=== PATIENT | male | born 1940 | race Caucasian/White ===

== ENCOUNTER 2018-08-16 20:44 | Inpatient (IN) | payer OTHER ==
[2018-08-16 21:32] LABS: ADD MAN DIFF? NO
[2018-08-16 21:36] LABS: BASOPHIL # 0.1 10^3/ul (0.0-0.1); BASOPHILS % 0.7 % (0.0-2.0); EOSINOPHILS # 0.2 10^3/ul (0.0-0.5); EOSINOPHILS % 2.2 % (0.0-7.0); HEMATOCRIT 45.2 % (42.0-52.0); HEMOGLOBIN 15.2 g/dl (14.0-18.0); LYMPHOCYTES % 25.9 % (15.0-51.0); MEAN CORPUSCULAR HEMOGLOBIN 30.6 pg (29.0-33.0); MEAN CORPUSCULAR HGB CONC 33.6 g/dl (32.0-37.0); MEAN CORPUSCULAR VOLUME 90.9 fl (82.0-101.0); MEAN PLATELET VOLUME 9.7 fl (7.4-10.4); MONOCYTE # 0.7 10^3/ul (0.3-0.9); MONOCYTES % 9.1 % (0.0-11.0); NEUTROPHIL # 4.7 10^3/ul (1.6-7.5); NEUTROPHILS % 61.6 % (39.0-77.0); PLATELET COUNT 227 10^3/UL (140-415); RED BLOOD COUNT 4.97 10^6/ul (4.70-6.10); RED CELL DISTRIBUTION WIDTH 13.3 % (11.5-14.5)
[2018-08-16 21:36] LABS: WHITE BLOOD COUNT 7.6 10^3/ul (4.8-10.8)
[2018-08-16] MEDS: SOD CHLORIDE 0.9% 1,000 ML IV (21:40)
[2018-08-16 21:52] LABS: ALANINE AMINOTRANSFERASE 14 IU/L (13-69); ALBUMIN 4.2 g/dl (3.3-4.9); ALBUMIN/GLOBULIN RATIO 1.23; ALKALINE PHOSPHATASE 80 IU/L (42-121); ANION GAP 12 (5-13); ASPARTATE AMINO TRANSFERASE 23 IU/L (15-46); BILIRUBIN,INDIRECT 0.2 mg/dl (0-1.1); BILIRUBIN,TOTAL 0.2 mg/dl (0.2-1.3); BLOOD UREA NITROGEN 23 mg/dl (7-20); CALCIUM 9.6 mg/dl (8.4-10.2); CARBON DIOXIDE 28 mmol/L (21-31); CHLORIDE 98 mmol/L (97-110); CREATININE 1.14 mg/dl (0.61-1.24); GLUCOSE 182 mg/dl (70-220); LIPASE 98 U/L (23-300); POTASSIUM 3.6 mmol/L (3.5-5.1); SODIUM 138 mmol/L (135-144); TOTAL PROTEIN 7.6 g/dl (6.1-8.1)
[2018-08-16 21:53] LABS: ETHANOL < 10.0 mg/dl (0-0)
[2018-08-16 22:03] LABS: TROPONIN-I < 0.012 ng/ml (0.000-0.120)
[2018-08-16 22:09] LABS: ADD UMIC YES; UR ASCORBIC ACID NEGATIVE (NEGATIVE); UR BILIRUBIN (Dip) NEGATIVE (NEGATIVE); UR BLOOD (Dip) 1+ mg/dL (NEGATIVE); UR CLARITY CLEAR (CLEAR); UR COLOR YELLOW (YELLOW); UR GLUCOSE (Dip) 3+ mg/dL (NEGATIVE); UR KETONES (Dip) TRACE mg/dL (NEGATIVE); UR LEUKOCYTE ESTERASE (Dip) NEGATIVE Leu/ul (NEGATIVE); UR NITRITE (Dip) NEGATIVE (NEGATIVE); UR RBC 22 /HPF (0-5); UR SPECIFIC GRAVITY (Dip) 1.023 (1.003-1.030); UR TOTAL PROTEIN (Dip) 2+ mg/dl (NEGATIVE); UR UROBILINOGEN (Dip) NEGATIVE (NEGATIVE); UR WBC 3 /HPF (0-5)
[2018-08-16] MEDS: IOHEXOL 100 ML (22:21)
[2018-08-16] MEDS: SOD CHLORIDE 0.9% 100 ML (22:21)
[2018-08-16] MEDS: PAROXETINE 20 MG TAB PO (23:28)
[2018-08-16] MEDS: DIAZEPAM 5 MG TAB PO (23:28)
[2018-08-16] MEDS: ACETAMINOPHEN 325 MG TAB PO (23:31)
[2018-08-17] MEDS ORDERED: GLUCOSE GEL 15 GRAM TUBE BUCCAL (02:30)
[2018-08-17] MEDS ORDERED: DEXTROSE 50% 50 ML SYRINGE IV ×2 (02:30)
[2018-08-17] MEDS ORDERED: morphine 2 MG INJ IV (02:30)
[2018-08-17] MEDS ORDERED: GLUCAGON 1 MG INJ IM (02:30)
[2018-08-17] MEDS ORDERED: GLUCOSE GEL 15 GRAM TUBE PO ×2 (02:30)
[2018-08-17] MEDS: PANTOPRAZOLE (EC) 40 MG TAB PO (06:21)
[2018-08-17] MEDS: DEXAMETHASONE 4 MG/ML 1 ML INJ IV ×3 (06:21→18:27)
[2018-08-17] MEDS: metFORMIN 850 MG TAB PO (07:52)
[2018-08-17] MEDS: CREON (24K-76K-120K) 1 CAP PO ×3 (07:52→15:38)
[2018-08-17] MEDS: ACCU-CHEK XX ×4 (08:11→20:26)
[2018-08-17] MEDS: AMLODIPINE 10 MG TAB PO (08:12)
[2018-08-17] MEDS: [UNRECOGNIZED DRUG - OTHER] XX (08:13)
[2018-08-17] MEDS: IBUPROFEN 600 MG TAB PO ×2 (12:52→20:24)
[2018-08-17] MEDS ORDERED: [UNRECOGNIZED DRUG - OTHER] PO (13:00)
[2018-08-17] MEDS ORDERED: LORAZEPAM 1 MG TAB PO (14:00)
[2018-08-17 16:19] LABS: INR 0.93; PROTIME 12.6 Sec (11.9-14.9)
[2018-08-17 16:20] LABS: PARTIAL THROMBOPLASTIN TIME 26.3 Sec (23.0-35.0)
[2018-08-17] MEDS: PATIENT'S OWN MEDICATION PO (18:41)
[2018-08-17] MEDS: ATORVASTATIN 40 MG TAB PO (20:23)
[2018-08-17] MEDS: DIAZEPAM 5 MG TAB PO (20:23)
[2018-08-17] MEDS: PAROXETINE 20 MG TAB PO (20:24)
[2018-08-18] MEDS: DEXAMETHASONE 4 MG/ML 1 ML INJ IV ×4 (00:53→17:06)
[2018-08-18] MEDS: INSULIN GLARGINE [LANTus] (100 UNITS/ML) SYG SC (02:10)
[2018-08-18] MEDS: PANTOPRAZOLE (EC) 40 MG TAB PO (06:30)
[2018-08-18] MEDS: PATIENT'S OWN MEDICATION PO ×3 (06:31→17:23)
[2018-08-18] MEDS: ACCU-CHEK XX ×3 (07:25→17:06)
[2018-08-18] MEDS: metFORMIN 850 MG TAB PO (07:55)
[2018-08-18] MEDS: CREON (24K-76K-120K) 1 CAP PO ×3 (07:55→17:11)
[2018-08-18] MEDS: IBUPROFEN 600 MG TAB PO ×2 (08:58→11:45)
[2018-08-18] MEDS: AMLODIPINE 10 MG TAB PO ×2 (08:58→11:43)
[2018-08-18] MEDS ORDERED: LIDOCAINE 1% (MDV) 20 ML INJ (09:11)
[2018-08-18] MEDS ORDERED: HYDROmorphONE 1 MG/5 ML IV SYRINGE IV ×2 (10:00)
[2018-08-18] MEDS ORDERED: ONDANSETRON 4 MG INJ IV (10:00)
[2018-08-18] MEDS ORDERED: LABETALOL HCL 20MG INJ IV (10:00)
[2018-08-18] MEDS ORDERED: METOCLOPRAMIDE 10 MG INJ IV (10:00)
[2018-08-18] MEDS ORDERED: OXYCODONE/ACETAMINOPHEN (5/325) TAB PO (10:00)
[2018-08-18] MEDS ORDERED: EPHEDrine SULFATE 50 MG/5 ML SYG IV (10:00)
[2018-08-18] MEDS ORDERED: hydrALAzine 20 MG INJ IV (10:00)
[2018-08-18] MEDS ORDERED: FENTAnyl 50 MCG/ML VIAL IV ×2 (10:00)
[2018-08-18] MEDS ORDERED: PROPOFOL 40 ML (10:55)
== END 2018-08-18 19:00 | disposition home or self-care (01) | DRG 41 ==
LOC: TEL 23:16 → E/R 20:44
PROC: 07B53ZX Excision of Right Axillary Lymphatic, Percutaneous Approach, Diagnostic (ICD-10-PCS; principal; 2018-08-18)
DX: C79.31 Secondary malignant neoplasm of brain (principal); C34.92 Malignant neoplasm of unspecified part of left bronchus or lung; M19.90 Unspecified osteoarthritis, unspecified site; F41.9 Anxiety disorder, unspecified; I10 Essential (primary) hypertension; J44.9 Chronic obstructive pulmonary disease, unspecified; E78.5 Hyperlipidemia, unspecified; F32.9 Major depressive disorder, single episode, unspecified; F17.200 Nicotine dependence, unspecified, uncomplicated; I44.1 Atrioventricular block, second degree; I35.0 Nonrheumatic aortic (valve) stenosis; R27.0 Ataxia, unspecified; E11.9 Type 2 diabetes mellitus without complications; Z91.81 History of falling
CPT/HCPCS: 36415; 70450; 70496; 70498; 70551; 70553; 71045; 71250; 74176; 77012; 80053; 80307; 81001; 82607; 82962; 83690; 84484; 85025; 85610; 85730; 87086; 88307; 88313; 88341; 88342; 93005; 93306; 99291-25

== ENCOUNTER 2018-09-10 14:30 | Observation (INO) | payer OTHER ==
[2018-09-10 15:53] LABS: ADD MAN DIFF? NO
[2018-09-10 15:55] LABS: WHITE BLOOD COUNT 15.8 10^3/ul (4.8-10.8)
[2018-09-10 15:55] LABS: BASOPHILS % 0.1 % (0.0-2.0); EOSINOPHILS % 0.1 % (0.0-7.0); HEMATOCRIT 45.3 % (42.0-52.0); HEMOGLOBIN 15.9 g/dl (14.0-18.0); LYMPHOCYTES # 0.7 10^3/ul (0.8-2.9); LYMPHOCYTES % 4.4 % (15.0-51.0); MEAN CORPUSCULAR HEMOGLOBIN 30.8 pg (29.0-33.0); MEAN CORPUSCULAR HGB CONC 35.1 g/dl (32.0-37.0); MEAN CORPUSCULAR VOLUME 87.8 fl (82.0-101.0); MEAN PLATELET VOLUME 10.4 fl (7.4-10.4); MONOCYTE # 0.6 10^3/ul (0.3-0.9); MONOCYTES % 3.9 % (0.0-11.0); NEUTROPHIL # 14.2 10^3/ul (1.6-7.5); NEUTROPHILS % 89.7 % (39.0-77.0); PLATELET COUNT 168 10^3/UL (140-415); RED BLOOD COUNT 5.16 10^6/ul (4.70-6.10); RED CELL DISTRIBUTION WIDTH 13.2 % (11.5-14.5)
[2018-09-10] MEDS: SOD CHLORIDE 0.9% 1,000 ML IV (16:05)
[2018-09-10 16:12] LABS: INR 0.95; PROTIME 12.8 Sec (11.9-14.9)
[2018-09-10 16:13] LABS: PARTIAL THROMBOPLASTIN TIME 21.3 Sec (23.0-35.0)
[2018-09-10 16:15] LABS: ANION GAP 11 (5-13); BLOOD UREA NITROGEN 49 mg/dl (7-20); CALCIUM 10.1 mg/dl (8.4-10.2); CARBON DIOXIDE 21 mmol/L (21-31); CHLORIDE 101 mmol/L (97-110); CHOL/HDL RATIO 6.5 RATIO; CHOLESTEROL 228 mg/dl (100-200); CREATININE 0.76 mg/dl (0.61-1.24); GLUCOSE 279 mg/dl (70-220); HDL CHOLESTEROL 35 mg/dl (31-75); LDL CHOLESTEROL,CALCULATED 137 mg/dl; POTASSIUM 4.4 mmol/L (3.5-5.1); SODIUM 133 mmol/L (135-144); TRIGLYCERIDES 278 mg/dl (0-149)
[2018-09-10 16:27] LABS: TROPONIN-I < 0.012 ng/ml (0.000-0.120)
[2018-09-10 16:27] LABS: HEMOGLOBIN A1C 8.8 % (0-5.9)
[2018-09-10] MEDS ORDERED: ONDANSETRON 4 MG INJ IV ×2 (18:30→21:00)
[2018-09-10] MEDS ORDERED: ACETAMINOPHEN 325 MG TAB PO ×2 (18:30→21:00)
[2018-09-10] MEDS ORDERED: morphine 2 MG INJ IV (21:00)
[2018-09-10] MEDS ORDERED: DIAZEPAM 5 MG TAB PO (21:00)
[2018-09-10] MEDS ORDERED: GLUCOSE GEL 15 GRAM TUBE BUCCAL (21:30)
[2018-09-10] MEDS ORDERED: GLUCAGON 1 MG INJ IM (21:30)
[2018-09-10] MEDS ORDERED: DEXTROSE 50% 50 ML SYRINGE IV ×2 (21:30)
[2018-09-10] MEDS ORDERED: GLUCOSE GEL 15 GRAM TUBE PO ×2 (21:30)
[2018-09-10] MEDS: LEVETIRACETAM 500 MG TAB PO (22:20)
[2018-09-10] MEDS: PAROXETINE 20 MG TAB PO (22:20)
[2018-09-10] MEDS: DEXAMETHASONE 4 MG TAB PO (22:21)
[2018-09-10] MEDS: DEXTROSE 5%-0.9% NACL 1,000 ML IV (22:25)
[2018-09-10] MEDS: INSULIN ASPART [NOVOLOG] 3 ML PEN SC (22:27)
[2018-09-11] MEDS: ACCU-CHEK XX (02:00)
[2018-09-11] MEDS: SOD CHLORIDE 0.9% 1,000 ML IV (04:52)
[2018-09-11] MEDS: FLUCONAZOLE 200 MG TAB PO (08:10)
[2018-09-11] MEDS: DEXAMETHASONE 4 MG TAB PO (08:10)
[2018-09-11] MEDS: INSULIN ASPART [NOVOLOG] 3 ML PEN SC (08:14)
[2018-09-11] MEDS: LEVETIRACETAM 500 MG TAB PO (08:17)
[2018-09-11] MEDS: OXAZEPAM 30 MG PO ×2 (08:27→11:51)
== END 2018-09-11 12:10 | disposition home or self-care (01) ==
LOC: 2NE 18:41 → E/R 14:30 → 2NE 18:06
DX: C34.90 Malignant neoplasm of unspecified part of unspecified bronchus or lung (principal); C79.31 Secondary malignant neoplasm of brain; K12.1 Other forms of stomatitis; E86.0 Dehydration; E11.9 Type 2 diabetes mellitus without complications; F32.9 Major depressive disorder, single episode, unspecified; I10 Essential (primary) hypertension; E78.5 Hyperlipidemia, unspecified; F41.9 Anxiety disorder, unspecified; Z79.84 Long term (current) use of oral hypoglycemic drugs; Z66 Do not resuscitate
CPT/HCPCS: 36415; 70450; 71045; 80048; 80061; 82962; 83036; 84484; 85025; 85610; 85730; 93005; 99285-25; G0378

== ENCOUNTER 2018-09-14 07:38 | Emergency (ER) | payer OTHER ==
[2018-09-14 08:22] LABS: ADD MAN DIFF? NO; BASOPHILS % 0.4 % (0.0-2.0); EOSINOPHILS # 0.1 10^3/ul (0.0-0.5); LYMPHOCYTES # 0.8 10^3/ul (0.8-2.9); LYMPHOCYTES % 10.3 % (15.0-51.0); MEAN CORPUSCULAR HEMOGLOBIN 30.7 pg (29.0-33.0); MEAN CORPUSCULAR HGB CONC 34.1 g/dl (32.0-37.0); MEAN PLATELET VOLUME 9.6 fl (7.4-10.4); MONOCYTE # 0.4 10^3/ul (0.3-0.9); MONOCYTES % 5.4 % (0.0-11.0); NEUTROPHIL # 6.4 10^3/ul (1.6-7.5); PLATELET COUNT 124 10^3/UL (140-415); RED BLOOD COUNT 4.89 10^6/ul (4.70-6.10); RED CELL DISTRIBUTION WIDTH 13.5 % (11.5-14.5)
[2018-09-14 08:22] LABS: WHITE BLOOD COUNT 7.9 10^3/ul (4.8-10.8)
[2018-09-14] MEDS: DIPHTH/TET/ACEL PERTUSS (ADULT) 0.5 ML VIAL IM* (08:28)
[2018-09-14 08:48] LABS: ANION GAP 6 (5-13); BLOOD UREA NITROGEN 24 mg/dl (7-20); CARBON DIOXIDE 30 mmol/L (21-31); CHLORIDE 100 mmol/L (97-110); CREATININE 0.74 mg/dl (0.61-1.24); GLUCOSE 187 mg/dl (70-220); POTASSIUM 3.9 mmol/L (3.5-5.1); SODIUM 136 mmol/L (135-144)
[2018-09-14] MEDS: LACTATED RINGER'S 1,000 ML IV (09:42)
== END 2018-09-14 15:55 | disposition home or self-care (01) ==
LOC: E/R 07:38
DX: S00.81XA Abrasion of other part of head, initial encounter (principal); S16.1XXA Strain of muscle, fascia and tendon at neck level, initial encounter; E86.0 Dehydration; C34.90 Malignant neoplasm of unspecified part of unspecified bronchus or lung; I10 Essential (primary) hypertension; F17.210 Nicotine dependence, cigarettes, uncomplicated; R40.2142 Coma scale, eyes open, spontaneous, at arrival to emergency department; R40.2362 Coma scale, best motor response, obeys commands, at arrival to emergency department; R40.2252 Coma scale, best verbal response, oriented, at arrival to emergency department; W01.198A Fall on same level from slipping, tripping and stumbling with subsequent striking against other object, initial encounter; Y92.009 Unspecified place in unspecified non-institutional (private) residence as the place of occurrence of the external cause; Z85.841 Personal history of malignant neoplasm of brain; Z79.84 Long term (current) use of oral hypoglycemic drugs; Z23 Encounter for immunization
CPT/HCPCS: 70450; 72125; 80048; 85025; 90471; 90715; 99285-25